=== PATIENT | female | born 1940 | race Caucasian/White ===

== ENCOUNTER → 2016-05-26 | Outpatient (REF) | payer MEDICARE, OTHER ==
[~2016-05-26] MED LIST: ACET-2264 PO; ALEN70TA2 PO; ALEN70TA47 PO; AML5T PO; ASCO500C6 PO; ASPI-586 PO; BETA5DRO3 OD; CHOL100045 PO; CHOL400C8 PO; DIGO125T PO; EYE DROP; FURO20TA4 PO; LATA2.5D5 OD; LATA2.5D5 OU; LSRT50T PO; NAPR250T PO; OXYC1TAB87 PO; PROP10DR2 OU; RANI150T11 PO; SPIR25TA PO; TIMO5DRO26 OP; TIMO5DRO28 OU; TML25OP25 OU; VIT1CAPS9 PO; VITA400C21 PO; WARF5TAB PO; WRF2T PO; WRF5T PO; [UNRECOGNIZED DRUG - CODE] OU; [UNRECOGNIZED DRUG - CODE] PO
== END ==
LOC: LAB 12:06
PROVIDERS: ATTEND Internal Medicine
DX: Z51.81 Encounter for therapeutic drug level monitoring (principal); Z79.01 Long term (current) use of anticoagulants
CPT/HCPCS: 85610

== ENCOUNTER → 2016-06-10 | Outpatient (REF) | payer MEDICARE, OTHER | LOC: LAB 14:56 | PROVIDERS: ATTEND Internal Medicine | DX: Z51.81 Encounter for therapeutic drug level monitoring (principal); Z79.01 Long term (current) use of anticoagulants | CPT/HCPCS: 85610 ==

== ENCOUNTER → 2016-06-19 | Outpatient (CLI) | payer MEDICARE, OTHER | LOC: RAD 08:53 | PROVIDERS: ATTEND Neurological Surgery | DX: M48.02 Spinal stenosis, cervical region (principal) | CPT/HCPCS: 36415; 72156; 82565; A9579 ==

== ENCOUNTER → 2016-06-24 | Outpatient (REF) | payer MEDICARE, OTHER | LOC: LAB 16:19 | PROVIDERS: ATTEND Internal Medicine | DX: Z51.81 Encounter for therapeutic drug level monitoring (principal); Z79.01 Long term (current) use of anticoagulants | CPT/HCPCS: 85610 ==

== ENCOUNTER → 2016-07-07 | Outpatient (REF) | payer MEDICARE, OTHER | LOC: LAB 12:12 | PROVIDERS: ATTEND Internal Medicine | DX: Z51.81 Encounter for therapeutic drug level monitoring (principal); Z79.01 Long term (current) use of anticoagulants | CPT/HCPCS: 85610 ==

== ENCOUNTER → 2016-08-06 | Outpatient (REF) | payer MEDICARE, OTHER | LOC: LAB 12:26 | PROVIDERS: ATTEND Internal Medicine | DX: Z51.81 Encounter for therapeutic drug level monitoring (principal); Z79.01 Long term (current) use of anticoagulants | CPT/HCPCS: 85610 ==

== ENCOUNTER → 2016-08-12 | Outpatient (REF) | payer MEDICARE, OTHER ==
[2016-08-12 12:04] LABS: BASOPHILS % (AUTO) 1 % (0-2); EOSINOPHILS % (AUTO) 1 % (0-4); LYMPHOCYTES # (AUTO) 0.9 X10^3; MEAN CORPUSCULAR HEMOGLOBIN 32.4 PG (26.0-34.0); MEAN CORPUSCULAR HGB CONC 33.8 g/dL (31.0-37.0); MEAN CORPUSCULAR VOLUME 96 FL (80-100); MEAN PLATELET VOLUME 10.5 FL (6.0-9.5); MONOCYTES # (AUTO) 0.7 X10^3; MONOCYTES % (AUTO) 12 % (3-11); NEUTROPHILS % (AUTO) 71 % (51-67); PLATELET COUNT 288 10^3uL (150-450); WHITE BLOOD COUNT 5.67 10^3uL (4.0-11.0)
[2016-08-12 12:14] LABS: ALBUMIN 4.2 g/dL (3.4-5.0); ANION GAP 14.6 MEQ/L (3-15); CALCULATED IONIZED CALCIUM 4.9 mg/dL (3.8-4.6); TOTAL PROTEIN 7.6 g/dL (6.4-8.5)
== END ==
LOC: LAB 11:54
PROVIDERS: ATTEND Internal Medicine
DX: Z00.00 Encounter for general adult medical examination without abnormal findings (principal); I48.91 Unspecified atrial fibrillation; I10 Essential (primary) hypertension; E78.4 Other hyperlipidemia; M81.0 Age-related osteoporosis without current pathological fracture
CPT/HCPCS: 80053; 80061; 80162; 82306; 84443; 85025

== ENCOUNTER → 2016-09-10 | Outpatient (REF) | payer MEDICARE, OTHER | LOC: LAB 13:10 | PROVIDERS: ATTEND Internal Medicine | DX: Z51.81 Encounter for therapeutic drug level monitoring (principal); Z79.01 Long term (current) use of anticoagulants | CPT/HCPCS: 85610 ==

== ENCOUNTER → 2016-09-17 | Outpatient (REF) | payer MEDICARE, OTHER | LOC: LAB 10:56 | PROVIDERS: ATTEND Internal Medicine | DX: Z51.81 Encounter for therapeutic drug level monitoring (principal); Z79.01 Long term (current) use of anticoagulants; I48.2 Chronic atrial fibrillation | CPT/HCPCS: 85610 ==

== ENCOUNTER 2016-09-24 09:34 | Observation (INO) | payer MEDICARE, OTHER ==
[~2016-09-24] VITALS: Ht 165.1 cm; Wt 58.0 kg
[2016-09-24] MEDS ORDERED: AMIT10TA6 PO (09:50)
[2016-09-24] MEDS ORDERED: GBPN100C PO (09:50)
[2016-09-24] MEDS ORDERED: ACETAMINOPHEN 500 MG TAB (TYLENOL) PO ONE (10:00)
[2016-09-24] MEDS ORDERED: ONDANSETRON 4 MG (ZOFRAN) ORAL DISSOLVE TAB PO ONE (10:00)
[2016-09-24 10:17] LABS: BASOPHILS % (AUTO) 0 % (0-2); EOSINOPHILS % (AUTO) 0 % (0-4); LYMPHOCYTES # (AUTO) 0.6 X10^3; MEAN CORPUSCULAR HGB CONC 32.9 g/dL (31.0-37.0); MEAN PLATELET VOLUME 9.7 FL (6.0-9.5); MONOCYTES # (AUTO) 1.5 X10^3; MONOCYTES % (AUTO) 13 % (3-11); NEUTROPHILS # (AUTO) 9.3 X10^3; NEUTROPHILS % (AUTO) 81 % (51-67); PLATELET COUNT 359 10^3uL (150-450); WHITE BLOOD COUNT 11.49 10^3uL (4.0-11.0)
[2016-09-24 10:19] LABS: MEAN CORPUSCULAR HEMOGLOBIN 32.4 PG (26.0-34.0); MEAN CORPUSCULAR VOLUME 99 FL (80-100)
[2016-09-24 10:43] LABS: ANION GAP 16.5 MEQ/L (3-15); CALCULATED IONIZED CALCIUM 4.8 mg/dL (3.8-4.6); TOTAL PROTEIN 7.7 g/dL (6.4-8.5)
[2016-09-24 11:18] LABS: BILIRUBIN,URINE Negative (Negative); CLARITY,URINE Clear; COLOR,URINE Yellow; GLUCOSE, URINE (UA) Negative (Negative); LEUKOCYTE ESTERASE ,URINE Negative (Negative); PH,URINE 5.5 (5.0 - 8.0); UROBILINOGEN,URINE 0.2 mg/dL (0.2-1.0)
[2016-09-24 11:20] LABS: ERYTHROCYTE SEDIMENTATION RT* 72 mm/hr (0-23)
--- NOTE | 2016-09-24 11:35 | Diagnostic Imaging Report ---
INDICATION: Pain starting earlier in the day. No known injury. TECHNIQUE: 3 views of the left hand. CORRELATION STUDY: None. FINDINGS: There is no acute bony abnormality about the left hand. At the radiocarpal rows, there is mild joint space narrowing. There is ossification at the region of the triangular fibrocartilage complex. There are rather advanced degenerative changes of the first carpal/metacarpal joint space with marked joint space narrowing, reactive sclerosis, and osteophyte formation. Mild to moderate radial subluxation of the first metacarpal is present. Rather large spurlike projections are interposed between the base of the first and second metacarpals. There are also degenerative changes of the second carpal/metacarpal articulation. The metacarpal/phalangeal joint is unremarkable. The interphalangeal joints demonstrate only mild narrowing. The overall assessment is somewhat limited given patient positioning. IMPRESSION: 1. Negative for acute bony abnormality of the hand. 2. There are, however, rather advanced degenerative changes, particularly at the first carpal/metacarpal articulation. Dictated by: Dictated on workstation # [id number]
--- NOTE | 2016-09-24 11:50 | NUR ---
Dr. Suarez on phone with Dr. Alva.
--- NOTE | 2016-09-24 12:09 | NUR ---
Dr. Suarez on phone with Dr. Bruce.
--- NOTE | 2016-09-24 12:36 | NUR ---
This nurse attempted to call report to 3rd floor. No answer, will call back.
--- NOTE | 2016-09-24 12:55 | NUR ---
This nurse calls 3rd floor, Melany will leave message with nurse to call for report.
--- NOTE | 2016-09-24 13:45 | NUR ---
Pt admitted to 318 at this time via w/c accompanied by Ivon Hua RN and family. Pt has scattered shingles scabs under L breast, L arm, and on L lateral back. None appear opened. Pt ambulates to weight chair and to bed with two assist. Ambulates fair with assist. Endorses L hand pain rated 6/10. See admission database for additional assessment info.
[2016-09-24 13:59] VITALS: BP 146/83
[2016-09-24] MEDS ORDERED: ONDANSETRON 4 MG (ZOFRAN) ORAL DISSOLVE TAB PO PRN (14:30)
[2016-09-24] MEDS ORDERED: POLYETHYLENE GLYCOL 17 GM (MIRALAX) PACKET PO PRN (14:30)
[2016-09-24] MEDS ORDERED: MAGNESIUM HYDROXIDE 80MG/ML (MILK OF MAGNESIA) 30 ML UDC PO PRN (14:30)
[2016-09-24] MEDS ORDERED: MAG HYDROX/AL HYDROX/SIMETH 200-200-20/5 ML (MAG-AL PLUS) 30 ML UDC PO PRN (14:30)
[2016-09-24] MEDS ORDERED: CALCIUM CARBONATE CHEWABLE 300 MG (TUMS) TABLET PO PRN (14:30)
[2016-09-24] MEDS ORDERED: DOCUSATE SODIUM 100 MG (COLACE) CAP PO PRN (14:30)
--- NOTE | 2016-09-24 14:49 | NUR ---
Medication reconciliation completed using patient home med list and external drRaj first refill/prescription history.
--- NOTE | 2016-09-24 15:11 | History and Physical (E) ---
History & Physical PCP: Declan Alva MD CC: Left hand pain, shingles pain HPI Lori Nix is a 76 year old female admitted from ED 09/24 where she presented with complaint of left hand pain. Onset yesterday, center of palm, but has progressed to encompass entire left hand. Tender to touch in ED. No history of injury. Pain shoots up to elbow. Also complains of nausea. Pain not relieved by acetaminophen. PCP had started gabapentin and amitriptyline about 10 days ago but not yet helping. Had shingles diagnosed in July and she still has crusted lesions. In ED, afebrile and other vitals stable. WBC 11.49, Hgb 11.9. ESR quite elevated at 72. CRP was 2.30. Chemistry fairly unremarkable though bili was 1.4. UA unremarkable. X-ray hand showed just degenerative changes. She was given acetaminophen, ondansetron. Because of poor symptom control and new difficulty caring for herself at home, she was admitted for observation and further management. On arrival to unit, a bit tired but she stirs readily to exam. Awakens easily. Alert, interactive, oriented. Able to relate history clearly. Hand pain onset was when she awoke in AM 09/23. Pain was center of hand and under thumb (thenar region), stabbing quality, radiating up to elbow. Took acetaminophen at home without much relief. Pain was worse today, hypersensitive to touch, so bad that she couldn't even use her hand. So she came to ED. Of particular concern is that loss of use of the left hand impedes her ability to care for herself at home. No reported trauma to that hand. Has tingling in fingertips but this is both hands. (Has history of cervical spinal stenosis, already s/p cervical spine surgery 2 years ago that did not really helps symptoms in her hands.) Pain in her left hand is unique and new. Has ho fever or chills at home. PMH * DVT, 2010 * Cervical Spinal Stenosis C2-5 * Atrial fibrillation * HTN * Lumbar Radiculopathy * Osteoporosis * Severe macular degeneration * Glaucoma * Shingles, July 2016 * Right hip fracture * Right wrist fracture PSH: * Epidural injections * Eye surgeries x 3 * Cholecystectomy * Right Hip fracture repair * Cervical spinal laminectomy for stenosis in 2014 (Dr. Zhang.) ALLERGIES: Please see list at end of report. HOME MEDICATIONS: Please see list at end of report. FH Parents--Mother had CVA, CHF and HTN. Father had heart disease. Siblings--Brother of CVA. Children--Daughter with DM. SH No smoking or alcohol. Living--Independently in an apartment. Home health comes in Wednesday through . Helps prepare meals. 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 . Daughter lives in town and provides support. ROS CONSTITUTION: Denies weight loss or gain. Denies fever or chills. HEENT: Has a gradual decline in visual acuity due to macular degeneration. No sores in mouth, sore throat. CV: No chest pain, palpitations. PULM: No cough, shortness of breath, difficulty breathing. GI: No upset stomach, nausea, vomiting, constipation, or diarrhea. No blood in stool. : No dysuria. No blood in urine. MS: Per HPI, exam. NEURO: Per HPI, exam. INTEG: Per HPI, exam. ENDO: No heat or cold intolerance. No polydipsia or polyuria. HEME/LYMPH: No easy bruising or bleeding. No swollen glands. PSYCH: No change in mood or behavior. OBJECTIVE Vital Signs Date Time Temp Pulse Resp B/P Pulse Ox O2 Delivery O2 Flow Rate FiO2 09/24/16 14:09 99.2 95 18 94 09/24/16 13:59 Room air 09/24/16 09:45 140/63 GEN: Awake, alert, oriented, NAD at present though she winces in pain with left hand manipulation. HEENT: EOMI, PERRL, moist oral mucosa. CV: RRR at present, S1 S2 audible with II/ systolic murmur. LUNGS: CTA B with no R/R/W. ABD: Soft, rounded and milldy distended but soft and non-tender. Normal bowel sounds. EXTR: 1+ pedal edema. INTEG: Shingles scabs, left hemithorax, generally T2 - T1 dermatomes anterior and posterior. Scabs are well-healed. No open sores. MS: Pain with manipulation and palpation of left hand, primarily focused volar palm and median distribution of hand. Has some pain in ulnar distribution as well but less severe. Fingers a bit cool to touch but has palpable radial and ulnar pulses bilaterally. Unable to touch 5th to 1st digit. No significant thenar atrophy. NEURO: No focal motor neuro deficit. Hand exam as above. Weight: 60.9 kg Lab-Past 14 Days, 35 Results 09/24/16 10:10: Alanine Aminotransferase (ALT/SGPT) 20L, Albumin 4.0, Albumin/Globulin Ratio 1.081L, Alkaline Phosphatase 97, Anion Gap 16.5H, Aspartate Amino Transf (AST/ SGOT) 21, BUN/Creatinine Ratio 18, Basophils # (Auto) 0.0, Basophils (%) (Auto) 0, Blood Urea Nitrogen 17, C-Reactive Protein 2.30H, Calcium Level 11.4H, Calcium/Ionized Calcium Ratio 4.8H, Calculated Osmolality 278L, Carbon Dioxide Level 28, Chloride Level 103, Creatinine 0.96, Digoxin Level 0.90, Eosinophils # (Auto) 0.0, Eosinophils (%) (Auto) 0, Erythrocyte Sedimentation Rate 72H, Estimat Glomerular Filtration Rate 68.6, Estimated GFR (Non- 56.7, Glucose Level 109, Hematocrit 36.20, Hemoglobin 11.9L, Lymphocytes # (Auto ) 0.6, Lymphocytes (%) (Auto) 5L, Mean Corpuscular Hemoglobin 32.4, Mean Corpuscular Hemoglobin Concent 32.9, Mean Corpuscular Volume 99, Mean Platelet Volume 9.7H, Monocytes # (Auto) 1.5, Monocytes (%) (Auto) 13H, Neutrophils # ( Auto) 9.3, Neutrophils (%) (Auto) 81H, Platelet Count 359, Potassium Level 4.0, Prothromb Time International Ratio 1.2, Prothrombin Time 13.1H, Red Blood Count 3.67L, Red Cell Distribution Width 12.6, Sodium Level 143, Total Bilirubin 1.4H , Total Protein 7.7, White Blood Count 11.49H 09/24/16 10:51: Urine Bilirubin Negative, Urine Blood Negative, Urine Clarity Clear, Urine Collection Type Catheter, Urine Color Yellow, Urine Glucose (UA) Negative, Urine Ketones TraceH, Urine Leukocyte Esterase Negative, Urine Nitrite Negative , Urine Protein Negative, Urine Specific [place] 1.020, Urine Urobilinogen 0.2, Urine pH 5.5 IMAGING 09/24/16 MRI LEFT HAND/WRIST: PENDING ASSESSMENT Lori Nix is a 76 year old female admitted from ED 09/24 with acute onset left hand pain, intractable, debilitating. It impacted her ability to care for herself at home. She has history of shingles and post-herpetic neuralgia, but location of description of pain is somewhat concerning for carpal tunnel syndrome. She has other chronic problems. PLAN * Left Hand Pain: Intractable, debilitating. Could be due to carpal tunnel. Could be due to post-herpetic neuralgia but less likely based on dermatome distribution of her lesions. Has history of cervical spinal stenosis but is already status/post laminectomy. Check MRI left wrist/hand. NSAID contraindicated... norco for pain. OT eval and treat. * Deconditioning: PT/OT eval and treat. * F/E/N: Regular diet. * Prophylaxis: Warfarin * Code Status: Full * Dispo: Observation. Expect at least 2 day stay. CHRONIC ISSUES * Post-Herpetic Neuralgia: Amitriptyline, gabapentin * HTN: Amlodipine, losartan, spironolactone * Atrial fibrillation: Digoxin, warfarin. * Glaucoma: Latanoprost * Glaucoma: Betaxolol, latanoprost * BLE Edema: Chronic. Furosemide. Allergies/Home Medications Allergies: Coded Allergies: Sulfa (Sulfonamide Antibiotics) (Verified Allergy, Mild, Nausea/Vomiting, 09/24/16) hydrocodone bitartrate (Verified Allergy, Mild, Nausea/Vomiting, 09/24/16) Reported Home Medications Scheduled Alendronate Sodium (Fosamax) 70 MG PO WEEKLY (Reported) Amitriptyline HCl (Amitriptyline HCl) 10 MG PO DAILY (Reported) Amlodipine Besylate (Amlodipine Besylate) 2.5 MG PO DAILY (Reported) Ascorbic Acid (Vitamin C) 500 MG PO BID (Reported) Aspirin (Aspir 81) 81 MG PO MoWeFr@0900 (Reported) Betaxolol HCl (Betaxolol HCl) 1 DROP OD BID (Reported) Cholecalciferol (Vitamin D3) (Vitamin D) 1,000 UNIT PO DAILY (Reported) Digoxin (Digoxin) 125 MCG PO MoWeFr@0900 (Reported) Furosemide (Furosemide) 20 MG PO MoWeFr@0900 (Reported) Gabapentin (Gabapentin) 100 MG PO TID (Reported) Latanoprost (Latanoprost) 1 DROP OD HS (Reported) Losartan Potassium (Losartan Potassium) 50 MG PO BID (Reported) Ranitidine HCl (Ranitidine HCl) 150 MG PO HS (Reported) Spironolactone (Aldactone) 25 MG PO MoWeFr@0900 (Reported) Vit C/Vit E/Lutein/Min/Pablo-3 (Ocuvite Softgel) 1 EACH PO DAILY (Reported) Warfarin (Warfarin) 5 MG PO DAILY (Reported) Scheduled PRN Acetaminophen (Tylenol Extra Strength) 500 MG PO every 4-6 hours PRN PRN PAIN ( Reported) Discontinued Medications Warfarin (Warfarin) 7.5 MG PO Mo@1700 (Reported) Discontinued Reason: Update list Copies to: End of Report . SUHA OCASIO MD September 24, 2016 12:14
[2016-09-24] MEDS ORDERED: HYDROcodone/APAP 5 MG/325 MG (NORCO) TAB PO PRN (15:35)
[2016-09-24 16:00] VITALS: BP 107/56
[2016-09-24] MEDS ORDERED: oxyCODONE/ACETAMINOPHEN 5MG-325 MG (PERCOCET) TABLET PO PRN (16:25)
--- NOTE | 2016-09-24 17:36 | OT Therapy Evaluation (E) ---
POC Plan of Care Problems Identified: Activity Tolerance, ADLs, Balance, Lt UE Coordination, Lt UE Strength, Pain, ROM, Rt UE Coordination, Rt UE Strength, Safety Awareness, Vision Impairment Plan: Evaluation-OT, ADL/Self Care Management, Therapy Exercises, Therapy Activities, Pt/Family/Staff Education Frequency of OT: Five times weekly Duration of OT: Other (5 days ) Therapy to Include: ADL training, Balance with ADLs, Manual therapy, Modalities , Pt/family education, Therapeutic activities, UE coord. training, UE strengthing, Splinting Discharge Recommendations: TCU/Skilled NH Pt would benefit from skilled occupational therapy services to improve independence with self care tasks. Additionally to reduce pain levels in left hand and improve movement and function. Pt. Aware of Dx and Prognosis: Yes Pt. Aware of Risk & Benefit: Yes Goals: Discussed with patient, Discussed with family Short Term Goals STG Time Frame: 3 Days Will Dress Upper Extremity: With Min Assistance Will Dress Lower Extremity: With Min Assistance Will do Bathing: With Min Assistance Will do Toileting: With Min Assistance Will Perform Funct Transfer: With Setup/SBA STG #1 Pt will participate in 15 min of ther-ex with 4 rest breaks or less. 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 LTG Time Frame: 5 Days Will Dress Upper Extremity: With Setup/SBA Will Dress Lower Extremity: With Setup/SBA Will do Tub/Shower Transfer: With Setup/SBA Will Bathe Self: With Setup/SBA Will do Toilet Transfers: With Setup/SBA Will do Toilieting: With Setup/SBA Inital Evaluation/General Service Date/Time 09/24/16, 17:36 Primary Diagnosis: (1) Hand pain, left ICD Code: M79.642 Treatment Diagnosis: (1) Hand pain, left ICD Code: M79.642 (2) Weakness ICD Code: R53.1 Onset Date: 09/23/16 Start of Care Date: September 24, 2016 Fall Level: Low Risk 25-50 Resuscitation Status: Do Not Resuscitate Reason for Referral: Evaluation and Treat Pertinent Medical History: Other (DVT, Cervical spinal Stenosis C2-C5, A-fib, HTN, Lumbar radiculopathy, osteoporosis, severe macular degeneration, glaucoma, shingles, R hip fx, R wrist fx. ) Pain Level: 7 Pain Locattion/Comments Left wrist along thenar region and carpal tunnel Oxygen Needed: Room air Rehabilitation Potential: Good Potential Based On Pt's motivation to get better. Rational for Skilled Treatment: Allow return to home, Deconditioning, Maximize Safety, Prevent Falls Living Status Prior to Admit: Alone ([address] [place] [address] ) Prior Level of Function: Independent ADLs Prior to onset, pt reports independence with self care tasks. Reports increased difficulty with transfers and completing functional mobility secondary to left hand pain. Reports increased difficulty with complete IADL tasks of cooking and cleaning. Kenan Arms comes in every night and morning to make meals for pt and helps with washing back. Pt completes a sponge bath secondary to difficulty with getting into tub/shower. Pt reports no history of falls. Pt repots increased difficulty with use bilateral hands during daily tasks secondary to numbness and increased pain in left hand. Additionally, pt reports difficulties with vision secondary to macular degeneration. Support Persons: Adult Child Entry Into Home: Stairs without Railing Steps Into Home: 1 Shower and Tub Type: Tub/shower combo-rails Assist Devices: Tub Bench, 4 WW Toilet Type: Raised with grab bars Current Function Assessment Mental Status Patient Orientation: Person, Place, Time, Situation Mental Status: Alert Cognition Attention: Impaired Memory: Impaired Safety/Judgement: Impaired Visual/Perceptual Skills Glassess: Yes Hearing: Impaired Comment History of glaucoma and macular degeneration. Pt reports difficulty with manipulating items secondary to numbness, decreased eye sight and arthritis. Hand Dominance Hand Dominance: Right ROM/Strength ROM Comment Pt demonstrates limited shoulder movement secondary to arthritis is bilateral upper extremities. Grossly 45 degrees. Unable to reach up to hair and completion external rotation. Noted- pt demonstrates difficulty maintaining neutral positioning of left hand, resulting in hand dropping into wrist flexion with increased pain levels. Pt demonstrates difficulty with active wrist extension and increased pain. Difficulty with opposition secondary to pain. Neurological Coordination: Moderately impaired Balance: Back support (Pt demonstrates a forward flexed posture in sitting with significant neck flexion.) Bed Mobility/Transfers Bed Mobility: Minimum assist Supine from Sit: Minimum assist Sit to Stand: Minimum assist Chair Transfer: Minimum assist Sitting Balance: Unable to lift head (Noted difficulty lifting hand, resulting in neck in a flexed position.), Other (Cueing for upright posture. ) ADLs Hand : Feeding Self: Independent (Set up assistance) Grooming: Grooming Status: Maximum assist Dressing Dressing: Moderate assist Bathing Shower/Bench Transfer Ability: Minimum assist Bathing- Type of Assistance: Moderate Assist Toileting Toilet Hygiene: Moderate Assist Toilet Transfer Ability: Minimum assist CPT/G Codes Time In: 16:18 Time Out: 16:47 Total Minutes: 29 (05/31 eval, 05/30 ADL) G Codes: G8987 Selfcare Cur Status (CJ), G8988 Selfcare Goal Stat (CI- Use of clinical judgment and Jacob Index, which assesses one's independence with self care tasks. Pt scored a 65/100, requiring assitance with grooming, toileting, bathing, dressing and functional mobility.) MARIAH MARTINEZ OT September 24, 2016 17:36
[2016-09-24] MEDS: GABAPENTIN 100 MG (NEURONTIN) CAP PO SCH (18:54)
[2016-09-24] MEDS: warFARin 5 MG (COUMADIN) TAB PO SCH (18:54)
[2016-09-24] MEDS: FAMOTIDINE 20 MG (PEPCID) TABLET PO SCH (20:57)
[2016-09-24] MEDS: ASCORBIC ACID 500 MG (VITAMIN C) TABLET PO SCH (20:58)
[2016-09-24] MEDS: AMITRIPTYLINE 10 MG (ELAVIL) TAB PO SCH (20:58)
[2016-09-24] MEDS: LOSARTAN 50 MG (COZAAR) TABLET PO SCH (20:58)
[2016-09-24] MEDS: HOME MEDICATION OD SCH ×2 (21:01→21:04)
--- NOTE | 2016-09-24 21:45 | NUR ---
Iv started by Prince Braun RN 20G Right Hand in prep for contrast in MRI
--- NOTE | 2016-09-24 21:50 | NUR ---
To MRI per w/c . Patient begins to get nauseated. Zofran ODT given.
--- NOTE | 2016-09-24 22:25 | NUR ---
Return from MRI. Patient refused test due to inability to tolerate it. Reports she continued to be nauseated all the way to MRI and when it was explained to her how long she would have to lay for the test she said there was no way she could tolerate it and she refused. Continues to be nauseous and has some dry heaves. States she became very dizzy when they got her up to take her to MRI. Amount of emesis was <60 mls. Assisted to bed where she began to feel a little bit better after lying still. Denies other needs. Enouraged to call PRN.
[2016-09-25 00:04] VITALS: BP 102/52
[2016-09-25 05:47] LABS: MEAN CORPUSCULAR HGB CONC 32.5 g/dL (31.0-37.0); MEAN PLATELET VOLUME 9.6 FL (6.0-9.5); PLATELET COUNT 318 10^3uL (150-450); WHITE BLOOD COUNT 10.34 10^3uL (4.0-11.0)
[2016-09-25 06:05] LABS: MEAN CORPUSCULAR HEMOGLOBIN 32.4 PG (26.0-34.0); MEAN CORPUSCULAR VOLUME 100 FL (80-100)
[2016-09-25 06:24] LABS: ALBUMIN 3.4 g/dL (3.4-5.0)
--- NOTE | 2016-09-25 06:24 | NUR ---
States that she slept part of night. Has no complaint at this time. Regrets that she was not able to tolerate MRI last night and is anxious to see what will say about that. Denies further nausea and has no complaint of pain. Up to bathroom. No dizziness with activity. Voids 250 mls dark urine.
[2016-09-25 06:27] LABS: BAND NEUTROPHILS % 1 % (0-6); LYMPHOCYTES # 1.4 #; SEGMENTED NEUTROPHILS % 69 % (51-67)
[2016-09-25 06:28] LABS: EOSINOPHILS % 1 % (0-4); MONOCYTES # 1.5 #; MONOCYTES % 15 % (3-11); RBC MORPH NORMAL (NORMAL); TOTAL CELLS COUNTED 100
[2016-09-25 07:43] VITALS: BP 121/50
[2016-09-25] MEDS ORDERED: SPIRONOLACTONE 25 MG (ALDACTONE) TABLET PO SCH (09:00)
[2016-09-25] MEDS ORDERED: ASPIRIN 81 MG CHEW (LOW-DOSE) PO SCH (09:00)
[2016-09-25] MEDS ORDERED: DIGOXIN 0.125 MG (LANOXIN) TAB PO SCH (09:00)
[2016-09-25] MEDS ORDERED: FUROSEMIDE 20 MG (LASIX) TAB PO SCH (09:00)
[2016-09-25] MEDS: HOME MEDICATION OD SCH ×3 (09:12→20:46)
[2016-09-25] MEDS: LOSARTAN 50 MG (COZAAR) TABLET PO SCH ×2 (09:13→20:45)
[2016-09-25] MEDS: CHOLECALCIFEROL 1000 INT UNITS (VITAMIN D3) TABLET PO SCH (09:13)
[2016-09-25] MEDS: ASCORBIC ACID 500 MG (VITAMIN C) TABLET PO SCH ×2 (09:13→20:45)
[2016-09-25] MEDS: GABAPENTIN 100 MG (NEURONTIN) CAP PO SCH ×3 (09:13→17:13)
[2016-09-25] MEDS: VIT A,C & E/LUTEIN/MINERALS (I-VITE) TABLET PO SCH (09:13)
[2016-09-25] MEDS: amLODIPine 5 MG (NORVASC) TAB PO SCH (09:14)
--- NOTE | 2016-09-25 09:26 | Progress Note (E) ---
Progress Note SUBJECTIVE Yesterday evening was supposed to have MRI but she suddenly became nauseated, vomited/dry heaved, and simply could not lay in prone position for MRI of wrist. This AM, she is rested and overall feeling better but generally does not think she's going to be able to tolerate prone positioning. Explained that without further testing, it will not be possible give her any idea of what is wrong with the hand. EMG not available at this facility. She voiced understanding of the situation. Is starting to get some symptomatic relief. Planning wrist splinting, OT, then referral for outpatient EMG and will defer MRI altogether. OBJECTIVE Vital Signs Date Time Temp Pulse Resp B/P Pulse Ox O2 Delivery O2 Flow Rate FiO2 09/25/16 07:43 97.4 69 18 121/50 93 Room air I & O 09/24/16 09/25/16 Cumulative From/Thru 19:00 07:00 09/24/16 09:45 - 09/25/16 06:06 Intake Total 100 ml 100 ml Output Total 200 ml 200 ml Balance -100 ml -100 ml GEN: Awake, alert, oriented, NAD at present. Only mildly nauseated now. HEENT: EOMI, PERRL, moist oral mucosa. CV: RRR at present, S1 S2 audible with II/ systolic murmur. LUNGS: CTA B with no R/R/W. ABD: Soft, rounded and milldy distended but soft and non-tender. Normal bowel sounds. EXTR: 1+ pedal edema. INTEG: Shingles scabs, left hemithorax, generally T2 - T1 dermatomes anterior and posterior. Scabs are well-healed. No open sores. MS: Pain with manipulation and palpation of left hand, primarily focused volar palm and median distribution of hand. Has some pain in ulnar distribution as well but less severe. Radial and ulnar pulses bilaterally. 05/10: Unable to touch 5th to 1st digit. No significant thenar atrophy. NEURO: No focal motor neuro deficit. Hand exam as above. Weight: 58 kg Lab-Past 14 Days, 35 Results 09/24/16 10:10: Alanine Aminotransferase (ALT/SGPT) 20L, Albumin 4.0, Albumin/Globulin Ratio 1.081L, Alkaline Phosphatase 97, Anion Gap 16.5H, Aspartate Amino Transf (AST/ SGOT) 21, BUN/Creatinine Ratio 18, Basophils # (Auto) 0.0, Basophils (%) (Auto) 0, Blood Urea Nitrogen 17, C-Reactive Protein 2.30H, Calcium Level 11.4H, Calcium/Ionized Calcium Ratio 4.8H, Calculated Osmolality 278L, Carbon Dioxide Level 28, Chloride Level 103, Creatinine 0.96, Digoxin Level 0.90, Eosinophils # (Auto) 0.0, Eosinophils (%) (Auto) 0, Erythrocyte Sedimentation Rate 72H, Estimat Glomerular Filtration Rate 68.6, Estimated GFR (Non- 56.7, Glucose Level 109, Hematocrit 36.20, Hemoglobin 11.9L, Lymphocytes # (Auto ) 0.6, Lymphocytes (%) (Auto) 5L, Mean Corpuscular Hemoglobin 32.4, Mean Corpuscular Hemoglobin Concent 32.9, Mean Corpuscular Volume 99, Mean Platelet Volume 9.7H, Monocytes # (Auto) 1.5, Monocytes (%) (Auto) 13H, Neutrophils # ( Auto) 9.3, Neutrophils (%) (Auto) 81H, Platelet Count 359, Potassium Level 4.0, Prothromb Time International Ratio 1.2, Prothrombin Time 13.1H, Red Blood Count 3.67L, Red Cell Distribution Width 12.6, Sodium Level 143, Total Bilirubin 1.4H , Total Protein 7.7, White Blood Count 11.49H 09/24/16 10:51: Urine Bilirubin Negative, Urine Blood Negative, Urine Clarity Clear, Urine Collection Type Catheter, Urine Color Yellow, Urine Glucose (UA) Negative, Urine Ketones TraceH, Urine Leukocyte Esterase Negative, Urine Nitrite Negative , Urine Protein Negative, Urine Specific [place] 1.020, Urine Urobilinogen 0.2, Urine pH 5.5 09/25/16 05:30: Albumin 3.4, Anion Gap 12.0, Basophils # (Auto) , Basophils (%) (Auto) , Blood Urea Nitrogen 17, C-Reactive Protein 7.00H, Calcium Level 10.9H, Carbon Dioxide Level 29, Chloride Level 103, Creatinine 0.92, Eosinophils # (Auto) , Eosinophils (%) (Auto) , Estimat Glomerular Filtration Rate 72.0, Estimated GFR (Non- 59.5, Glucose Level 104, Hematocrit 32.90L, Hemoglobin 10.7L, Lymphocytes # (Auto) , Lymphocytes (%) (Auto) , Mean Corpuscular Hemoglobin 32.4, Mean Corpuscular Hemoglobin Concent 32.5, Mean Corpuscular Volume 100, Mean Platelet Volume 9.6H, Monocytes # (Auto) , Monocytes (%) (Auto ) , Neutrophils # (Auto) , Neutrophils (%) (Auto) , Platelet Count 318, Potassium Level 4.1, Red Blood Count 3.30L, Red Cell Distribution Width 12.7, Sodium Level 140, White Blood Count 10.34, Absolute Band Neutrophils 0.1, Band Neutrophils % 1, Basophils # (Manual) 0.0, Basophils % (Manual) 0, Blood Morphology Comment Normal, Differential Total Cells Counted 100, Eosinophils # 0.1, Eosinophils % (Manual) 1, Lymphocytes # 1.4, Lymphocytes % (Manual) 14L, Monocytes # 1.5, Monocytes % (Manual) 15H, Neutrophils # 7.1, Phosphorus Level 3.5#, Segmented Neutrophils % 69H IMAGING 09/24/16 HAND, LEFT, 3 VIEWS INDICATION: Pain starting earlier in the day. No known injury. TECHNIQUE: 3 views of the left hand. CORRELATION STUDY: None. FINDINGS: There is no acute bony abnormality about the left hand. At the radiocarpal rows, there is mild joint space narrowing. There is ossification at the region of the triangular fibrocartilage complex. There are rather advanced degenerative changes of the first carpal/metacarpal joint space with marked joint space narrowing, reactive sclerosis, and osteophyte formation. Mild to moderate radial subluxation of the first metacarpal is present. Rather large spurlike projections are interposed between the base of the first and second metacarpals. There are also degenerative changes of the second carpal/ metacarpal articulation. The metacarpal/phalangeal joint is unremarkable. The interphalangeal joints demonstrate only mild narrowing. The overall assessment is somewhat limited given patient positioning. IMPRESSION: 1. Negative for acute bony abnormality of the hand. 2. There are, however, rather advanced degenerative changes, particularly at the first carpal/ metacarpal articulation. ASSESSMENT Lori Nix is a 76 year old female admitted from ED 09/24 with acute onset left hand pain, intractable, debilitating. It impacted her ability to care for herself at home. She has history of shingles and post-herpetic neuralgia, but location of description of pain is somewhat concerning for carpal tunnel syndrome. She has other chronic problems. PLAN * Left Hand Pain: Intractable, debilitating. Could be due to carpal tunnel. Could be due to post-herpetic neuralgia but less likely based on dermatome distribution of her lesions. Has history of cervical spinal stenosis but is already status/post laminectomy. Unable to tolerate positioning for hand MRI. EMG not available at this facility. NSAID contraindicated... norco for pain. OT eval and treat. Wrist splint. * Deconditioning: PT/OT eval and treat. * F/E/N: Regular diet. * Prophylaxis: Warfarin * Code Status: Full * Dispo: Observation. Expect at least 2 day stay. At discharge, may need NH if unable to care for self. Refer for outpatient EMG. CHRONIC ISSUES * Post-Herpetic Neuralgia: Amitriptyline, gabapentin * HTN: Amlodipine, losartan, spironolactone * Atrial fibrillation: Digoxin, warfarin. * Glaucoma: Latanoprost * Glaucoma: Betaxolol, latanoprost * BLE Edema: Chronic. Furosemide. SUHA OCASIO MD September 25, 2016 09:26
--- NOTE | 2016-09-25 10:30 | NUR ---
Left wrist velcro splint applied.
--- NOTE | 2016-09-25 10:31 | NUR ---
Encouraged to move fingers of left hand often for exercise.
[2016-09-25] MEDS: ACETAMINOPHEN 325 MG TAB (TYLENOL) PO PRN (10:36)
--- NOTE | 2016-09-25 13:50 | NUR ---
Request iv removal. Dr. Bruce approved.
--- NOTE | 2016-09-25 14:15 | Physical Therapy Evaluation(E) ---
Plan of Care STG: Plan-Treatment Functional: Amb Safe w/ AD on level STG Time Frame: 3 Days Goals Discussed/Agreed: Yes Plan: Gait & Transfer Training, RROM, Strengthening, Transfer Training, Therapy Excercise Discharge Recommendations: TCU/Skilled NH Aware of Dx and Prognosis: Yes Aware of Risk & Benefit: Yes To be Seen: Daily Wednesday-Wednesday Initial Evaluation Service Date/Time 09/25/16, 14:10 Primary Diagnosis: (1) Hand pain, left ICD Code: M79.642 Treatment Diagnosis: (1) Hand fracture, right ICD Code: S62.91XA (2) Left hand pain ICD Code: M79.642 (3) Shingles ICD Code: B02.9 (4) Weakness ICD Code: R53.1 Onset Date: 09/24/2016 Start of Care Date: September 25, 2016 Resuscitation Status: Do Not Resuscitate Precaution/Isolation: Standard Precautions Fall Level: Low Risk 25-50 Initial Assessment Reason for Rehab: Increase Mobility, Increase Strength, Increase Balance, Increase Transfers Medical History: Other (DVT, Cervical spinal Stenosis C2-C5, A-fib, HTN, Lumbar radiculopathy, osteoporosis, severe macular degeneration, glaucoma, shingles, R hip fx, R wrist fx. ) Pain Location/Comment Severe pain in palm of left hand along median nerve distribution. Prior Level of Function Patient lives in an apartment and ambulates with AWW. Patient has [employer] to assist with meal prep. Progressive decreased ability to use upper extremities secondary to numbness and pain with resultant diminished ROM. Rehabilitation Potential: Fair Comment Patient demonstrates significant neck flexion upon sitting and standing and overcompensates via trunk extension causing her to fall backwards several times. Assistive Device: 4 Wheeled Walker Distance Walked in Feet 15 feet. Assist: Min Assist/Contact Guard ROM/Strength Hip Mobility: Right Hip ROM: WFL Left Hip ROM: WFL Knee Flexion Mobility: Right Knee Flexion: WFL Left Knee Flexion: WFL Knee Extension Mobility: Right Knee Extension: WFL Left Knee Extension: WFL Assessment/Goals Initial Transfer Assessment Rolling: Supervision or setup Sit-Supine: Minimal Assistance Sitting Edge of Bed: Minimal Assistance (secondary to retropulsion. ) Supine-Sit: Supervision or setup Sit-Stand from Bed: Minimal Assistance Stand-Sit: Minimal Assistance Ambulation: Minimal Assistance Distance Walked in Feet 15 feet. Coding Time In: 1048 Time Out: 1130 Total Minutes: 42 Charges: 36771 Eval< 20 min, 89142 Ther Activity MARYAM WOMACK PT September 25, 2016 14:15
--- NOTE | 2016-09-25 15:05 | NUR ---
Visited with Pt. daughter Margarita regarding placement for Pt. Margarita has started on the medicaid application. She would prefer her mother go to [facility]. SW contacted [facility] and provided them information about Pt. [facility] is unable to accept Pt. at this time because they are not accepting medicaid pending at this time. KENDELL attempted to contact Pt. daughter to discuss with her but there was no answer.
--- NOTE | 2016-09-25 15:17 | NUR ---
DISMISSED TO [facility] PER W/C ACCOMPANIED BY [facility] STAFF. ALERT AND SMILING ON DISMISSAL. SKIN W/P/D. RESP UNLABORED. DIAPER CHANGED PRIOR TO DISMISSAL FOR INCONTINENT STOOL.
[2016-09-25 15:33] VITALS: BP 101/61
--- NOTE | 2016-09-25 16:07 | NUR ---
Information faxed to [facility] [place] [facility]. Asked that they contact staff on third floor if they are able to accept.
[2016-09-25] MEDS: warFARin 5 MG (COUMADIN) TAB PO SCH (17:13)
--- NOTE | 2016-09-25 17:35 | OT Daily Note Inpatient (E) ---
OT Daily Treatment Service Date/Time 09/25/16, 17:35 Primary Diagnosis: (1) Hand pain, left ICD Code: M79.642 Treatment Diagnosis: (1) Hand pain, left ICD Code: M79.642 (2) Weakness ICD Code: R53.1 Onset Date: 09/23/16 Start of Care Date: September 24, 2016 Precaution/Isolation: Standard Precautions Fall Level: Low Risk 25-50 Resuscitation Status: Do Not Resuscitate Current Activity: Agrees to participate Doing a little better. New wrist brace feels better. Pain Level: 0 Oxygen Needed: Room air Current Function Assessment Cognition Attention: Impaired Memory: Impaired Safety/Judgement: Impaired Visual/Perceptual Skills Glassess: Yes Hearing: Impaired Treatments Strengthening Exercise Upper Extremity Strength Exerc : Comment Upon doffing of wrist brace, pt demonstrated swelling in distal forearm near wrist crease. Pt participated in ther-ex of AROM exercises of left hand. Noted- pt demonstrated difficulty with active wrist flexion and extension secondary to increase pain levels. Completed opposition of digits and composite fist flexion and extension of digits. Moderate tenderness to palpation along thenar and carpal tunnel region. Noted- pt demonstrated difficulty holding wrist in neutral positioning with it dropping into a flexed position. Pt reports wrist feeling heavy and increased pain. Educated on completed fist squeezes above heart to decreased swelling in forearm. Additionally discussed positioning of wrist and keeping placed in splint for neutral positioning. Discussed passive stretching of wrist to prevent stiffness. Pt verbalized understanding. Education/Assessment Rehabilitation Potential: Good Demonstrates difficulty maintaining in neutral position, resulting in wrist dropping into flexion. Recommend continued splinting for neutral positioning with passive stretching at this time within pain-free ranger to reduce stiffness. CPT/G Codes Time In: 15:25 Time Out: 15:45 Total Minutes: 20 (06/05 TE) MARIAH MARTINEZ OT September 25, 2016 17:35
[2016-09-25] MEDS: FAMOTIDINE 20 MG (PEPCID) TABLET PO SCH (20:45)
[2016-09-25] MEDS: AMITRIPTYLINE 10 MG (ELAVIL) TAB PO SCH (20:45)
[2016-09-25 23:38] VITALS: BP 110/53
--- NOTE | 2016-09-26 06:35 | NUR ---
Patient rests in bed throughout night without needs. Up to bathroom with 1 assist. Eyes closed at this time, no complaints.
[2016-09-26 08:17] VITALS: BP 106/61
[2016-09-26] MEDS: HOME MEDICATION OD SCH ×3 (09:00→20:34)
--- NOTE | 2016-09-26 09:30 | Progress Note (E) ---
Progress Note SUBJECTIVE Overnight, no major issues reported. Vitals remain stable. No BM recorded yet. Noted that with this flare of pain, ESR was high at 73 and CRP 7.00. She had no focal arthropathy other than the hand pain... no joint swelling or erythema. No prior history of gout. History obtained from patient and daughter yesterday reveals that she has already had EMG in [place] and already knows she has carpal tunnel. No longer need to strive for MRI of hand. Has already demonstrated some functional improvement. Wrist placed in velcro splint. On exam, pleasant, interactive. Describes having spasms, not painful, running her body. "Feels like my whole body is yawning." Has had no definitive seizure activity... no loss of consciousness, no observed tonic/clonic activity. Left wrist/hand still in pain but she has slowly improving finger dexterity and is able to flex. Still unable to care for herself because of the hand disability. OBJECTIVE Vital Signs Date Time Temp Pulse Resp B/P Pulse Ox O2 Delivery O2 Flow Rate FiO2 09/26/16 08:17 97.9 98 18 106/61 91 Room air I & O 09/25/16 09/26/16 Cumulative From/Thru 19:00 07:00 09/24/16 09:45 - 09/26/16 06:06 Intake Total 830 ml 406 ml 1336 ml Output Total 250 ml 900 ml 1350 ml Balance 580 ml -494 ml -14 ml GEN: Awake, alert, oriented, NAD at present. Only mildly nauseated now. HEENT: EOMI, PERRL, moist oral mucosa. CV: RRR at present, S1 S2 audible with II/ systolic murmur. LUNGS: CTA B with no R/R/W. ABD: Soft, rounded and milldy distended but soft and non-tender. Normal bowel sounds. EXTR: 1+ pedal edema. INTEG: Shingles scabs, left hemithorax, generally T2 - T1 dermatomes anterior and posterior. Scabs are well-healed. No open sores. MS: Pain with manipulation and palpation of left hand, primarily focused volar palm and median distribution of hand. Has some pain in ulnar distribution as well but less severe. Radial and ulnar pulses bilaterally. Now able to touch 2nd , 3rd, 4th digits to thumb. NEURO: No focal motor neuro deficit. Hand exam as above. Weight: 58 kg Lab-Past 14 Days, 35 Results 09/24/16 10:10: Alanine Aminotransferase (ALT/SGPT) 20L, Albumin 4.0, Albumin/Globulin Ratio 1.081L, Alkaline Phosphatase 97, Anion Gap 16.5H, Aspartate Amino Transf (AST/ SGOT) 21, BUN/Creatinine Ratio 18, Basophils # (Auto) 0.0, Basophils (%) (Auto) 0, Blood Urea Nitrogen 17, C-Reactive Protein 2.30H, Calcium Level 11.4H, Calcium/Ionized Calcium Ratio 4.8H, Calculated Osmolality 278L, Carbon Dioxide Level 28, Chloride Level 103, Creatinine 0.96, Digoxin Level 0.90, Eosinophils # (Auto) 0.0, Eosinophils (%) (Auto) 0, Erythrocyte Sedimentation Rate 72H, Estimat Glomerular Filtration Rate 68.6, Estimated GFR (Non- 56.7, Glucose Level 109, Hematocrit 36.20, Hemoglobin 11.9L, Lymphocytes # (Auto ) 0.6, Lymphocytes (%) (Auto) 5L, Mean Corpuscular Hemoglobin 32.4, Mean Corpuscular Hemoglobin Concent 32.9, Mean Corpuscular Volume 99, Mean Platelet Volume 9.7H, Monocytes # (Auto) 1.5, Monocytes (%) (Auto) 13H, Neutrophils # ( Auto) 9.3, Neutrophils (%) (Auto) 81H, Platelet Count 359, Potassium Level 4.0, Prothromb Time International Ratio 1.2, Prothrombin Time 13.1H, Red Blood Count 3.67L, Red Cell Distribution Width 12.6, Sodium Level 143, Total Bilirubin 1.4H , Total Protein 7.7, White Blood Count 11.49H 09/24/16 10:51: Urine Bilirubin Negative, Urine Blood Negative, Urine Clarity Clear, Urine Collection Type Catheter, Urine Color Yellow, Urine Glucose (UA) Negative, Urine Ketones TraceH, Urine Leukocyte Esterase Negative, Urine Nitrite Negative , Urine Protein Negative, Urine Specific [place] 1.020, Urine Urobilinogen 0.2, Urine pH 5.5 09/25/16 05:30: Albumin 3.4, Anion Gap 12.0, Basophils # (Auto) , Basophils (%) (Auto) , Blood Urea Nitrogen 17, C-Reactive Protein 7.00H, Calcium Level 10.9H, Carbon Dioxide Level 29, Chloride Level 103, Creatinine 0.92, Eosinophils # (Auto) , Eosinophils (%) (Auto) , Estimat Glomerular Filtration Rate 72.0, Estimated GFR (Non- 59.5, Glucose Level 104, Hematocrit 32.90L, Hemoglobin 10.7L, Lymphocytes # (Auto) , Lymphocytes (%) (Auto) , Mean Corpuscular Hemoglobin 32.4, Mean Corpuscular Hemoglobin Concent 32.5, Mean Corpuscular Volume 100, Mean Platelet Volume 9.6H, Monocytes # (Auto) , Monocytes (%) (Auto ) , Neutrophils # (Auto) , Neutrophils (%) (Auto) , Platelet Count 318, Potassium Level 4.1, Red Blood Count 3.30L, Red Cell Distribution Width 12.7, Sodium Level 140, White Blood Count 10.34, Absolute Band Neutrophils 0.1, Band Neutrophils % 1, Basophils # (Manual) 0.0, Basophils % (Manual) 0, Blood Morphology Comment Normal, Differential Total Cells Counted 100, Eosinophils # 0.1, Eosinophils % (Manual) 1, Lymphocytes # 1.4, Lymphocytes % (Manual) 14L, Monocytes # 1.5, Monocytes % (Manual) 15H, Neutrophils # 7.1, Phosphorus Level 3.5#, Segmented Neutrophils % 69H IMAGING 09/24/16 HAND, LEFT, 3 VIEWS INDICATION: Pain starting earlier in the day. No known injury. TECHNIQUE: 3 views of the left hand. CORRELATION STUDY: None. FINDINGS: There is no acute bony abnormality about the left hand. At the radiocarpal rows, there is mild joint space narrowing. There is ossification at the region of the triangular fibrocartilage complex. There are rather advanced degenerative changes of the first carpal/metacarpal joint space with marked joint space narrowing, reactive sclerosis, and osteophyte formation. Mild to moderate radial subluxation of the first metacarpal is present. Rather large spurlike projections are interposed between the base of the first and second metacarpals. There are also degenerative changes of the second carpal/ metacarpal articulation. The metacarpal/phalangeal joint is unremarkable. The interphalangeal joints demonstrate only mild narrowing. The overall assessment is somewhat limited given patient positioning. IMPRESSION: 1. Negative for acute bony abnormality of the hand. 2. There are, however, rather advanced degenerative changes, particularly at the first carpal/ metacarpal articulation. ASSESSMENT Lori Nix is a 76 year old female admitted from ED 09/24 with acute onset left hand pain, intractable, debilitating. It impacted her ability to care for herself at home. She has history of shingles and post-herpetic neuralgia, but location of description of pain is somewhat concerning for carpal tunnel syndrome. She has other chronic problems. PLAN * Carpal Tunnel Syndrome: Based on new history obtained after admit... she already had EMG in [place] in June 2016 that found carpal tunnel syndrome. Reports not immediately available. Did not seek surgical intervention. Had not been wearing wrist brace. Added wrist brace this hospitalization. Continue at discharge. PCP can make recommendations for surgical referral. * Left Hand Pain: Improving, but on admit this was intractable, debilitating. Attributed to carpal tunnel. Could be due to post-herpetic neuralgia but less likely based on dermatome distribution of her lesions. Has history of cervical spinal stenosis but is already status/post laminectomy. Unable to tolerate positioning for hand MRI. NSAID contraindicated because of anticoagulation. Oxycodone/acetaminophen for pain. OT eval and treat. Wrist splint. * Nausea/Vomiting: Resolved. Anxiety reaction? Gastroenteritis? Supportive care , ondansetron, promethazine. * Elevated CRP, Elevated ESR: Uncertain cause. No definitive source of infection at present. Viral? CRP peak 7.00. ESR peak 73. Check uric acid level, RF, BOOM, CCP. * Deconditioning: PT/OT eval and treat. * F/E/N: Regular diet. * Prophylaxis: Warfarin * Code Status: Full * Dispo: Observation. Discharge deferred because there has not yet been time to arrange for retirement placement and she cannot go home yet as she lives independently but is not currently able to safely attend to her ADLs nor independent ADLs. CHRONIC ISSUES * Post-Herpetic Neuralgia: Amitriptyline, gabapentin * HTN: Amlodipine, losartan, spironolactone * Atrial fibrillation: Digoxin, warfarin. * Glaucoma: Latanoprost * Glaucoma: Betaxolol, latanoprost * BLE Edema: Chronic. Furosemide. SUHA OCASIO MD September 26, 2016 08:31
[2016-09-26] MEDS: CHOLECALCIFEROL 1000 INT UNITS (VITAMIN D3) TABLET PO SCH (10:53)
[2016-09-26] MEDS: VIT A,C & E/LUTEIN/MINERALS (I-VITE) TABLET PO SCH (10:53)
[2016-09-26] MEDS: LOSARTAN 50 MG (COZAAR) TABLET PO SCH ×2 (10:54→20:34)
[2016-09-26] MEDS: ASCORBIC ACID 500 MG (VITAMIN C) TABLET PO SCH ×2 (10:56→20:34)
[2016-09-26] MEDS: GABAPENTIN 100 MG (NEURONTIN) CAP PO SCH ×3 (10:56→17:12)
[2016-09-26] MEDS: amLODIPine 5 MG (NORVASC) TAB PO SCH (10:59)
[2016-09-26] MEDS: ACETAMINOPHEN 325 MG TAB (TYLENOL) PO PRN (11:13)
--- NOTE | 2016-09-26 11:13 | PT Daily Note Inpatient (E) ---
PT Daily Treatment Service Date/Time 09/26/16, 11:06 Medical Diagnosis: (1) Hand pain, left ICD Code: M79.642 Physical Therapy: (1) Hand fracture, right ICD Code: S62.91XA (2) Left hand pain ICD Code: M79.642 (3) Shingles ICD Code: B02.9 (4) Weakness ICD Code: R53.1 Precaution/Isolation: Standard Precautions Resuscitation Status: Do Not Resuscitate Fall Level: Low Risk 25-50 Subjective Patient resting in bed and willing to participate in therapy, but requested to hold off ambulation until they came to get her for her shower. Patient rates pain in left hand as 3-4/10. She demonstrates a small improvement in PIP/DIP ROM throughout 2nd - 5th digits. Mild swelling around left thumb noted, brace assessed and it is appropriate fit. Oxygen Delivery: Room air Treatments Extremity: Both Upper Extremities Assistance: AAROM Repetition: 2 x 10 Exercise: Scapular Retraction, Shoulder Rolls, Other (wrist flexion/extension, forearm supination/pronation. Seated edge of bed working on maintaining neutral posture. Patient requires verbal cues finding upright/neutral posture. Head continues to remain flexed past 45 degrees. Patient sits EOB x approximtaely 5 minutes prior to fatigue requiring moderate assistance from PT to prevent leaning backward. ) Transfers Sit-Supine: Contact Guard Assist Supine-Sit: Minimal Assistance (secondary to inability to utilized LUE. ) Education/Plan Education Educated patient on finding upright sitting but tightening her stomach muscles, bringing shoulders of hips. Assessment Patient required decreased assistance initially with sitting edge of bed but with increased fatigue required Plan Patient demonstrates impaired functional ability to be able to care for herself Patient will be seen: Daily Wednesday-Wednesday Coding Time In: 1015 Time Out: 1049 Total Minutes: 34 Charges: 68627 Exercise Therp 15 m, 36369 Ther Activity MARYAM WOMACK PT September 26, 2016 11:13
--- NOTE | 2016-09-26 15:30 | NUR ---
Radon Inspector Griselda Davalos spoke to patients daughter about staus of move to residential. [facility] Griselda talked to production clerks supervisor at [facility] and [facility] to get detail of transfer. Transfer is scheduled for [address] (). [address] Bruce notified of transfer.
[2016-09-26 15:36] VITALS: BP 102/61
[2016-09-26] MEDS: warFARin 5 MG (COUMADIN) TAB PO SCH (17:12)
[2016-09-26] MEDS: AMITRIPTYLINE 10 MG (ELAVIL) TAB PO SCH (20:34)
[2016-09-26] MEDS: FAMOTIDINE 20 MG (PEPCID) TABLET PO SCH (20:34)
[2016-09-26 23:43] VITALS: BP 104/60
[2016-09-27 06:08] LABS: BASOPHILS % (AUTO) 0 % (0-2); EOSINOPHILS # (AUTO) 0.1 10^3uL; EOSINOPHILS % (AUTO) 1 % (0-4); LYMPHOCYTES # (AUTO) 1.1 X10^3; MEAN PLATELET VOLUME 10.1 FL (6.0-9.5); MONOCYTES # (AUTO) 1.2 X10^3; MONOCYTES % (AUTO) 14 % (3-11); NEUTROPHILS # (AUTO) 6.4 X10^3; NEUTROPHILS % (AUTO) 72 % (51-67); PLATELET COUNT 330 10^3uL (150-450); WHITE BLOOD COUNT 8.83 10^3uL (4.0-11.0)
--- NOTE | 2016-09-27 06:40 | NUR ---
Patient rests in bed throughout night without needs. This AM notes that left hand is swollen with velcro brace on. Brace removed and patient's arm placed up on pillows for comfort. Patient without pain or needs, resting in bed with eyes closed at this time.
[2016-09-27 06:42] LABS: MEAN CORPUSCULAR HEMOGLOBIN 32.7 PG (26.0-34.0); MEAN CORPUSCULAR VOLUME 99 FL (80-100)
[2016-09-27 06:46] LABS: ALBUMIN 3.3 g/dL (3.4-5.0); ANION GAP 11.9 MEQ/L (3-15)
[2016-09-27 08:01] LABS: ERYTHROCYTE SEDIMENTATION RT* 99 mm/hr (0-23)
--- NOTE | 2016-09-27 08:12 | NUR ---
Pt sitting in bed eating breakfast. She needs assistance repositioning. Left wrist remains sliqhtly swollen.
[2016-09-27 08:16] VITALS: BP 131/60
[2016-09-27] MEDS: GABAPENTIN 100 MG (NEURONTIN) CAP PO SCH ×2 (08:25→12:33)
[2016-09-27] MEDS: amLODIPine 5 MG (NORVASC) TAB PO SCH (08:25)
[2016-09-27] MEDS: CHOLECALCIFEROL 1000 INT UNITS (VITAMIN D3) TABLET PO SCH (08:26)
[2016-09-27] MEDS: LOSARTAN 50 MG (COZAAR) TABLET PO SCH (08:26)
[2016-09-27] MEDS: ACETAMINOPHEN 325 MG TAB (TYLENOL) PO PRN (08:26)
[2016-09-27] MEDS: VIT A,C & E/LUTEIN/MINERALS (I-VITE) TABLET PO SCH (08:26)
[2016-09-27] MEDS: ASCORBIC ACID 500 MG (VITAMIN C) TABLET PO SCH (08:26)
[2016-09-27] MEDS: HOME MEDICATION OD SCH (09:26)
--- NOTE | 2016-09-27 12:44 | Discharge Instructions (E) ---
Discharge Instructions Instructions * You were evaluated and treated for intractable left hand pain. Based on prior nerve testing and based on the symptoms you had this admission, this is felt to be due to carpal tunnel syndrome. The compression of the nerve in your wrist might be getting worse. For now, it is recommended you were the wrist splint provided at all times. (It's ok to remove briefly for comfort or bathing.) An MRI might further characterize the severity of carpal tunnel but this was not performed because you could not tolerate positioning. Talk to your doctor about referral to surgeon who can further evaluate. If wrist splinting does not help, surgery to release compression of your carpal tunnel might help. * For pain, oxycodone/acetaminophen has been prescribed. You cannot take NSAIDs (ibuprofen, naproxen, etc.) because you take a blood thinner. * You were found to have elevated calcium. Blood tests were sent to further evaluate including PTH (parathyroid hormone), PTHrp (parathyroid hormone related peptide) and vitamin D. If abnormal, your primary care doctor will direct further testing. Be sure to drink plenty of fluid. Review the provided handout for details. * You were found to have elevated inflammatory markers including ESR and CRP. The cause of this is uncertain but there was no apparent evidence of infection. Inflammatory arthritis and other conditions can cause rise in these values. Your uric acide level was normal making gout unlikely. Blood tests for BOOM, CCP , and rheumatoid factor (markers that can suggest autoimmune diseases) were pending at the time of discharge. Follow-up these tests with your primary care doctor. Referral to a motor scooter mechanic may be indicated. * You will benefit from further therapy to help regain function of your hand as well as help you regain strength and endurance to hopefully return to independent living. You are being discharged to [facility] for occupational and physical therapy. Activity Instructions As tolerated. Doctor's Appointment Follow-up with your primary care doctor in 3-5 days. Discharge Diet: SUHA Gonzales MD September 27, 2016 12:44
[2016-09-27] MEDS ORDERED: ONDAN4ODT PO (12:48)
[2016-09-27] MEDS ORDERED: AC325T PO (12:48)
[2016-09-27] MEDS ORDERED: DOCU100C8 PO (12:48)
[2016-09-27] MEDS ORDERED: MAG30ORA PO (12:48)
[2016-09-27] MEDS ORDERED: MAGN400O7 PO (12:48)
[2016-09-27] MEDS ORDERED: POLY17PO2 PO (12:48)
[2016-09-27] MEDS ORDERED: OXYC1TAB87 PO (12:48)
--- NOTE | 2016-09-27 12:50 | NUR ---
Report given to Sangita Carmona at [facility].
--- NOTE | 2016-09-27 13:38 | NUR ---
[facility] with personal belongings and instructions.
--- NOTE | 2016-09-27 14:42 | NUR ---
Discharge instructions given to patient and family members. Family verbalized understanding. Addendum: 09/27/16 at 1443 by Ceci Kearney RN Instructions were given at 1400.
--- NOTE | 2016-09-27 14:47 | Discharge Summary (E) ---
Discharge Summary (E) Admit Date/Time September 24, 2016 at 12:18 Discharge Date/Time September 27, 2016 Admitting Provider Marcelo Bruce MD Primary Care Provider Declan Alva MD Attending Provider Marcelo Bruce MD Consulting Provider History and Present Illness Lori Nix is a 76 year old female admitted from ED 09/24 with acute onset left hand pain, intractable, debilitating. It impacted her ability to care for herself at home. She has history of shingles and post-herpetic neuralgia, but location of description of pain is somewhat concerning for carpal tunnel syndrome. She has other chronic problems. Pain was treated with wrist splinting and oxycodone/acetaminophen. After admission, more history was gathered from patient and daughter: she has already had EMG in [place] that diagnosed her with carpal tunnel syndrome. Tried to get MRI to further characterize hand/wrist injury but she could not tolerate positioning. Recommended continued splinting and oxycodone/acetaminophen. She will benefit further from occupational therapy after discharge. PCP can discuss possible recommendation to surgery for carpal tunnel release if conservative measures not successful. ESR was quite elevated, peaking 99 before discharge. Etiology uncertain but labs drawn as discussed below, all pending at the time of discharge. Calcium was mildly elevated and labs were drawn for this as well. Discussed below. All pending at the time of discharge. Overall, she did improve during her observation stay. She still has deficits in ADLs and she was therefore discharged to [facility] for further recovery where she will get occupational and physical therapy on an outpatient basis. She did not qualify for snf because she did not qualify as an inpatient admission. Hospital Course and Treatment * Carpal Tunnel Syndrome: Based on new history obtained after admit... she already had EMG in [place] in June 2016 that found carpal tunnel syndrome. Reports not immediately available. Did not seek surgical intervention. Had not been wearing wrist brace. Added wrist brace this hospitalization. Continue at discharge. PCP can make recommendations for surgical referral. * Left Hand Pain: Improving, but on admit this was intractable, debilitating. Attributed to carpal tunnel. Considered post-herpetic neuralgia but less likely based on dermatome distribution of her lesions. Has history of cervical spinal stenosis but is already status/post laminectomy. Unable to tolerate positioning for hand MRI to further characterize. NSAID contraindicated because of anticoagulation. Oxycodone/acetaminophen for pain. OT eval and treat. Wrist splint. * Nausea/Vomiting: Resolved. Occured on night of admit. Anxiety reaction? Supportive care, ondansetron. * Elevated CRP, Elevated ESR: Uncertain cause. No definitive source of infection at present. CRP peak 7.00 trending down to 5.70 before discharge. ESR peak 99 before discharge. Considered PMR but she had not complained of classic shoulder/hip girdle pain. Uric acid level normal. RF, BOOM, CCP pending at time of discharge. If negative, consider treating as PMR with prednisone. * Hypercalcemia: Peak 11.4, trending down at discharge to 10.9. PTH, PTHrp and Vit D levels pending at time of discharge. Repeat chemistry planned 09/30 to further monitor. * Deconditioning: PT/OT eval and treat. Continue at [facility]. * F/E/N: Regular diet. * Prophylaxis: Warfarin. INR at discharge was 1.4. * Code Status: Full * Dispo: Observation. Discharged to [facility] for further PT/ OT with goal of recovering to independent living. CHRONIC ISSUES * Post-Herpetic Neuralgia: Amitriptyline, gabapentin * HTN: Amlodipine, losartan, spironolactone * Atrial fibrillation: Digoxin, warfarin. * Glaucoma: Latanoprost * Glaucoma: Betaxolol, latanoprost * BLE Edema: Chronic. Furosemide. Discharge Physicial Exam General Vital Signs Date Time Temp Pulse Resp B/P Pulse Ox O2 Delivery O2 Flow Rate FiO2 09/27/16 08:16 99.3 84 16 131/60 91 Room air GEN: Awake, alert, oriented, NAD at present. Dressed in home clothes and appears more well-rested. HEENT: EOMI, PERRL, moist oral mucosa. CV: RRR S1 S2 audible with II/ systolic murmur. LUNGS: CTA B with no R/R/W. ABD: Soft, rounded and milldy distended but soft and non-tender. Normal bowel sounds. EXTR: 1+ pedal edema, chronic, stable. INTEG: Shingles scabs, left hemithorax, generally T2 - T1 dermatomes anterior and posterior. Scabs are well-healed. No open sores. MS: On admit, pain with manipulation and palpation of left hand, primarily focused volar palm and median distribution of hand. Has some pain in ulnar distribution as well but less severe. Radial and ulnar pulses present bilaterally. At discharge, pain improved and now able to touch 2nd, 3rd, 4th digits to thumb. NEURO: Hand exam as above. Weight: 58 kg Laboratory/Radiology Data See EMR for complete details. WBC 11.49 on admit, 8.83 at discharge. ESR was 72 on admit, 99 at discharge. Chemistry was stable except for calcium: 11.4 on admit, 10.9 on discharge. CRP peaked at 7.00, down to 5.70 at discharge. Pending labs include RF, BOOM, CCP, Vitamin D, PTH, PTHrp. IMAGING 09/24/16 HAND, LEFT, 3 VIEWS INDICATION: Pain starting earlier in the day. No known injury. TECHNIQUE: 3 views of the left hand. CORRELATION STUDY: None. FINDINGS: There is no acute bony abnormality about the left hand. At the radiocarpal rows, there is mild joint space narrowing. There is ossification at the region of the triangular fibrocartilage complex. There are rather advanced degenerative changes of the first carpal/metacarpal joint space with marked joint space narrowing, reactive sclerosis, and osteophyte formation. Mild to moderate radial subluxation of the first metacarpal is present. Rather large spurlike projections are interposed between the base of the first and second metacarpals. There are also degenerative changes of the second carpal/ metacarpal articulation. The metacarpal/phalangeal joint is unremarkable. The interphalangeal joints demonstrate only mild narrowing. The overall assessment is somewhat limited given patient positioning. IMPRESSION: 1. Negative for acute bony abnormality of the hand. 2. There are, however, rather advanced degenerative changes, particularly at the first carpal/ metacarpal articulation. Discharge Disposition Discharged to [facility] in stable condition. Instructions * You were evaluated and treated for intractable left hand pain. Based on prior nerve testing and based on the symptoms you had this admission, this is felt to be due to carpal tunnel syndrome. The compression of the nerve in your wrist might be getting worse. For now, it is recommended you were the wrist splint provided at all times. (It's ok to remove briefly for comfort or bathing.) An MRI might further characterize the severity of carpal tunnel but this was not performed because you could not tolerate positioning. Talk to your doctor about referral to surgeon who can further evaluate. If wrist splinting does not help, surgery to release compression of your carpal tunnel might help. * For pain, oxycodone/acetaminophen has been prescribed. You cannot take NSAIDs (ibuprofen, naproxen, etc.) because you take a blood thinner. * You were found to have elevated calcium. Blood tests were sent to further evaluate including PTH (parathyroid hormone), PTHrp (parathyroid hormone related peptide) and vitamin D. If abnormal, your primary care doctor will direct further testing. Be sure to drink plenty of fluid. Review the provided handout for details. * You were found to have elevated inflammatory markers including ESR and CRP. The cause of this is uncertain but there was no apparent evidence of infection. Inflammatory arthritis and other conditions can cause rise in these values. Your uric acide level was normal making gout unlikely. Blood tests for BOOM, CCP , and rheumatoid factor (markers that can suggest autoimmune diseases) were pending at the time of discharge. Follow-up these tests with your primary care doctor. Referral to a honey producer may be indicated. * You will benefit from further therapy to help regain function of your hand as well as help you regain strength and endurance to hopefully return to independent living. You are being discharged to [facility] for occupational and physical therapy. Activity Instructions As tolerated. Appointments Follow-up with your primary care doctor in 3-5 days. Discharge Diet: Regular Discharge Medications New Medications: Acetaminophen (Acetaminophen) 325 Mg Tablet 650 MG PO Q6H PRN PAIN #0 Ref 0 TAB Docusate Sodium (Docusate Sodium) 100 Mg Capsule 100 MG PO BID PRN CONSTIPATION #0 Ref 0 CAP Mag Hydrox/Al Hydrox/Simeth (Mag-Al Plus -Simethicone [id number]/5ml) 30 Ml Oral.susp 30 ML PO Q6H PRN DYSPEPSIA #0 Ref 0 ML Magnesium Hydroxide (Milk of Magnesia 400mg/5ml) 400 Mg/5 Ml Oral.susp 30 ML PO DAILY PRN CONSTIPATION #0 Ref 0 ML Ondansetron HCl (Zofran ODT) 4 Mg Tab.rapdis 4 MG PO Q6HR PRN NAUSEA/VOMITING #15 Ref 0 TAB Oxycodone HCl/Acetaminophen (Endocet) 1 Tab Tablet 0.5-1 TAB PO Q6H PRN PAIN #15 Ref 0 TAB Polyethylene Glycol 3350 (Miralax) 17 Gm Powd.pack 17 GM PO DAILY PRN CONSTIPATION #0 Ref 0 PACKET Continued Medications: Alendronate Sodium (Fosamax) 70 Mg Tablet 70 MG PO WEEKLY Amitriptyline HCl (Amitriptyline HCl) 10 Mg Tablet 10 MG PO DAILY #90 Amlodipine Besylate (Amlodipine Besylate) 5 Mg Tablet 2.5 MG PO DAILY TAB Ascorbic Acid (Vitamin C) 500 Mg Capsule.er 500 MG PO BID Aspirin (Aspir 81) 81 Mg Tablet.dr 81 MG PO MoWeFr@0900 Betaxolol HCl (Betaxolol HCl) 5 Ml Drops 1 DROP OD BID RT EYE ONLY Days 30 Cholecalciferol (Vitamin D3) (Vitamin D) 1,000 Unit Tablet 1000 UNIT PO DAILY Digoxin (Digoxin) 125 Mcg Tablet 125 MCG PO MoWeFr@0900 Furosemide (Furosemide) 20 Mg Tablet 20 MG PO MoWeFr@0900 TAB Gabapentin (Gabapentin) 100 Mg Capsule 100 MG PO TID #180 Latanoprost (Latanoprost) 2.5 Ml Drops 1 DROP OD HS Losartan Potassium (Losartan Potassium) 50 Mg Tablet 50 MG PO BID Ranitidine HCl (Ranitidine HCl) 150 Mg Tablet 150 MG PO HS Spironolactone (Aldactone) 25 Mg Tablet 25 MG PO MoWeFr@0900 TAB Vit C/Vit E/Lutein/Min/Alma-3 (Ocuvite Softgel) 1 Each Capsule 1 EACH PO DAILY CAP Warfarin (Warfarin) 5 Mg Tablet 5 MG PO DAILY TAB Discontinued Medications: Acetaminophen (Tylenol Extra Strength) 500 Mg Tablet 500 MG PO every 4-6 hours PRN PAIN Follow up New Orders: COMPREHENSIVE METABOLIC PANEL* - 09/30/16 CRP C REACTIVE PROTEIN* - 09/30/16 PHOSPHORUS - 09/30/16 PROTIME WITH INR - 09/30/16 Discharge Diagnosis See list above. Problems: Copies to: End of Report . MARCELO BRUCE MD September 27, 2016 14:09
[2016-09-29 09:38] LABS: ANTI RIBONUCLEAR PROTEIN 67 U/mL (0-99); ANTI-DS DNA 31 U/mL (0-99); ANTI-HISTONE 6 U/mL (0-99); SCLERODERMA ANTIBODY 141 U/mL (0-99); SJOGRENS SSA ANTIBODIES 30 U/mL (0-99); SJOGRENS SSB ANTIBODIES 15 U/mL (0-99)
== END 2016-09-27 13:38 ==
LOC: ED 09:38 → MED/SURG 12:18
PROVIDERS: ADMIT Internal Medicine; ATTEND Internal Medicine
DX: G56.02 Carpal tunnel syndrome, left upper limb (principal); B02.29 Other postherpetic nervous system involvement; R70.0 Elevated erythrocyte sedimentation rate; E83.52 Hypercalcemia; I10 Essential (primary) hypertension; I48.91 Unspecified atrial fibrillation; R60.0 Localized edema; M81.0 Age-related osteoporosis without current pathological fracture; R11.2 Nausea with vomiting, unspecified; H40.9 Unspecified glaucoma; Z79.01 Long term (current) use of anticoagulants; Z86.718 Personal history of other venous thrombosis and embolism
CPT/HCPCS: 36415; 51701; 73130; 80053; 80069; 80162; 81003; 82306; 83970; 84550; 85007; 85025; 85610; 85652; 86038; 86140; 86225; 86235; 86431; 97110; 97161; 97165; 97530; 97535; 99283; A9270; G0378; G8987; G8988; 99218; 99285